=== PATIENT | female | born 1990 | race Hispanic/Latino ===

== ENCOUNTER 2022-07-13 23:06 | Emergency (ER) | payer OTHER ==
[~2022-07-13] VITALS: Ht 162.6 cm; Wt 78.0 kg
[2022-07-13] MEDS ORDERED: ACETAMINOPHEN 325 MG TAB PO ONE (23:30)
[2022-07-13 23:39] LABS: CLARITY,URINE SL CLOUDY (CLEAR); COLOR,URINE YELLOW (YELLOW); LEUKOCYTE ESTERASE ,URINE MODERATE (NEGATIVE)
[2022-07-13 23:40] LABS: KETONES,URINE NEGATIVE (NEGATIVE); NITRITE,URINE NEGATIVE (NEGATIVE); PROTEIN,URINE DIPSTICK NEGATIVE (NEGATIVE); URINE UROBILINOGEN 0.2 mg/dL (0.2 - 1)
[2022-07-13 23:45] LABS: AMORPHOUS SEDIMENT,URINE MODERATE (FEW); BACTERIA,URINE FEW /HPF; EPITHELIAL CELLS,URINE MANY /LPF
[2022-07-14] MEDS ORDERED: NAPROSYN500 MG PO (01:01)
[2022-07-14] MEDS ORDERED: CYCLOBENZAPRINE5 MG PO (01:01)
[2022-07-14] MEDS ORDERED: CEFDINIR300 MG PO (01:31)
[2022-07-14 01:57] VITALS: BP 121/74
== END 2022-07-14 02:01 | disposition home or self-care (01) ==
LOC: ER 23:28
DX: R06.02 Shortness of breath (principal); S00.83XA Contusion of other part of head, initial encounter; M54.6 Pain in thoracic spine; M54.50 Low back pain, unspecified; M25.552 Pain in left hip; M25.562 Pain in left knee; V43.52XA Car driver injured in collision with other type car in traffic accident, initial encounter; Y92.488 Other paved roadways as the place of occurrence of the external cause; N39.0 Urinary tract infection, site not specified
CPT/HCPCS: 70450; 70486; 71046; 72070; 72100; 72125; 81001; 81025; 99283